=== PATIENT | male | born 1990 | race Caucasian/White ===

== ENCOUNTER 2018-10-24 23:22 | Emergency (ER) | payer SELFPAY, MEDICAID ==
[2018-10-25] MEDS: KETOROLAC 30 MG INJ IM (00:06)
== END 2018-10-25 00:59 | disposition home or self-care (01) ==
LOC: FTE 23:22
DX: J34.89 Other specified disorders of nose and nasal sinuses (principal); R22.0 Localized swelling, mass and lump, head
CPT/HCPCS: 70140; 96372; 99284-25